=== PATIENT | female | born 1950 | race Caucasian/White ===

== ENCOUNTER 2020-10-19 15:45 | Emergency (ER) | payer MEDICARE, OTHER ==
[~2020-10-19] VITALS: Ht 170.2 cm; Wt 71.2 kg
[2020-10-19] MEDS ORDERED: MEDROLDOSEPACK PO (17:53)
[2020-10-19] MEDS ORDERED: VOLTAREN GEL 1100 G2 TOP (17:53)
[2020-10-19] MEDS ORDERED: ROBAXIN 750 MG750 MG PO (17:53)
[2020-10-19 18:17] VITALS: BP 167/79
== END 2020-10-19 18:17 | disposition home or self-care (01) ==
LOC: M.ERS 15:45
DX: M54.42 Lumbago with sciatica, left side (principal); Z20.828 Contact with and (suspected) exposure to other viral communicable diseases; E11.9 Type 2 diabetes mellitus without complications; I10 Essential (primary) hypertension; E03.9 Hypothyroidism, unspecified; Z88.5 Allergy status to narcotic agent